=== PATIENT | female | born 1985 ===

== ENCOUNTER 2025-01-30 08:06 | Inpatient (IN) | payer OTHER ==
[~2025-01-30] VITALS: Ht 157.5 cm; Wt 76.7 kg
[2025-01-30 07:29] VITALS: BP 123/82
[2025-01-30] MEDS ORDERED: PRENATABS RX T1 EACH PO (08:19)
[2025-01-30] MEDS ORDERED: CHILDREN'S ASPI81 MG PO (08:20)
[2025-01-30] MEDS ORDERED: RINGERS SOLUTION,LACTATED 1,000 ML IV SCH (08:30)
[2025-01-30] MEDS ORDERED: CITRIC ACID/SODIUM CITRATE 30 ML BLIST.PACK PO NR (08:30)
[2025-01-30] MEDS ORDERED: CEFOXITIN SODIUM 2,000 MG VIAL IV NR (08:30)
[2025-01-30 08:34] LABS: BASO % 0.3 % (0.1-1.2); EOS # 0.07 (0.04-0.54); EOS % 0.7 % (0.7-7.0); LYMPH # 1.01 (1.18-3.74); LYMPH % 10.8 % (19.3-53.1); MEAN PLATELET VOLUME 12.70 fl (9.4-12.4); MONO # 0.63 (0.24-0.82); MONO % 6.7 % (4.7-12.5); NEUT # 7.56 (1.56-6.13); NEUT % 80.6 % (34.0-71.1); RED CELL DISTRIBUTION WIDTH 12.7 % (11.6-14.4)
[2025-01-30 09:21] LABS: INR < 0.93
[2025-01-30 09:31] LABS: ALT/SGPT 23.0 U/L (12-78); AST/SGOT 20.0 U/L (15-37); BILIRUBIN TOTAL 0.48 mg/dL (0.3-1.2); BUN CREA RATIO 18.0 (7.0-25.0); CREATININE SERUM 0.56 mg/dL (0.55-1.02); GFR 121.81; GLOBULINA 3.6 G/DL (2.4-3.5); GLUCOSE FASTING 92.0 mg/dL (65-100); OSMOLALITY SERUM 271.0 MOSM/KG (275-295)
[2025-01-30] MEDS ORDERED: OXYTOCIN 10 UNITS/ML VIAL ONE ×2 (09:55→14:14)
[2025-01-30] MEDS ORDERED: ERYTHROMYCIN BASE OPHT 1GM EACH TUBE OP ONE (09:55)
[2025-01-30] MEDS ORDERED: OXYTOCIN 1,000 ML IV SCH (11:15)
[2025-01-30] MEDS ORDERED: MORPHINE SULFATE 4 MG/ML CARTRIDGE IV PRN (11:15)
[2025-01-30 14:53] VITALS: BP 135/70
[2025-01-30 16:00] VITALS: BP 125/81
[2025-01-31 01:27] VITALS: BP 123/55
[2025-01-31 08:00] VITALS: BP 123/77
[2025-01-31 09:58] LABS: BASO % 0.3 % (0.1-1.2); EOS # 0.06 (0.04-0.54); EOS % 0.5 % (0.7-7.0); LYMPH # 1.33 (1.18-3.74); LYMPH % 11.5 % (19.3-53.1); MEAN PLATELET VOLUME 12.90 fl (9.4-12.4); MONO # 0.65 (0.24-0.82); MONO % 5.6 % (4.7-12.5); NEUT # 9.43 (1.56-6.13); NEUT % 81.7 % (34.0-71.1); RED CELL DISTRIBUTION WIDTH 13.0 % (11.6-14.4)
[2025-01-31 16:00] VITALS: BP 121/69
[2025-02-01] VITALS: BP 123/80
[2025-02-01] MEDS ORDERED: OxyCODONE HCL 5 MG TABLET (ROXICODONE) PO PRN (06:00)
[2025-02-01 09:33] VITALS: BP 128/76
== END 2025-02-01 16:05 | disposition home or self-care (01) | DRG 788 ==
LOC: LDR 08:06 → O/R 08:06 → OB/GYN 14:16
PROVIDERS: ADMIT Obstetrics & Gynecology; ATTEND Obstetrics & Gynecology
PROC: 4A1HXCZ Monitoring of Products of Conception, Cardiac Rate, External Approach (ICD-10-PCS; 2025-01-30)
PROC: 10D00Z1 Extraction of Products of Conception, Low, Open Approach (ICD-10-PCS; principal; 2025-01-30 12:45)
DX: O32.1XX0 Maternal care for breech presentation, not applicable or unspecified (principal); Z3A.38 38 weeks gestation of pregnancy; Z37.0 Single live birth